=== PATIENT | male | born 1955 | race Caucasian/White ===

== ENCOUNTER 2018-04-01 09:21 | Day surgery (SDC) | payer BC, OTHER ==
[2018-03-31 16:09] VITALS: BMI 28.5
[2018-04-01 11:05] VITALS: TEMP 97.8
[2018-04-01 12:14] VITALS: BP 126/75; PULSE 63
== END 2018-04-01 11:55 | disposition home or self-care (01) ==
LOC: JASU-ENDO 09:21
PROVIDERS: ATTEND Internal Medicine Gastroenterology
PROC: 0DJD8ZZ Inspection of Lower Intestinal Tract, Via Natural or Artificial Opening Endoscopic (ICD-10-PCS; principal; 2018-04-01 10:45)
DX: Z12.11 Encounter for screening for malignant neoplasm of colon (principal); K57.30 Diverticulosis of large intestine without perforation or abscess without bleeding; K64.8 Other hemorrhoids; Z86.010 Personal history of colon polyps; Z83.71 Family history of colonic polyps